=== PATIENT | male | born 1955 | race Caucasian/White ===

== ENCOUNTER 2019-01-31 17:38 | Inpatient (IN) | payer BC ==
[2019-01-31] MEDS ORDERED: hydrOXYzine PAMOATE 25 MG CAPSULE (FP) PO ONE ×2 (18:05→18:44)
[2019-01-31] MEDS ORDERED: KETOROLAC TROMETHAMINE 60 MG/2 ML VIAL IM ONE (18:05)
[2019-01-31] MEDS ORDERED: KETOROLAC TROMETHAMINE 30 MG/1 ML VIAL ONE (18:44)
[2019-01-31] MEDS ORDERED: KETOROLAC TROMETHAMINE 30 MG/1 ML VIAL IVPUSH ONE (18:51)
[2019-01-31 19:00] LABS: ALBUMIN 3.6 g/dl (3.4-5.0); BILIRUBIN,TOTAL 3.6 mg/dl (0.2-1); CALCIUM 8.9 mg/dl (8.5-10); CREATININE 0.9 mg/dl (0.55-1.3); POTASSIUM 3.8 mmol/L (3.5-5.1); TOT PROT 6.4 g/dl (6.4-8.2)
[2019-01-31 19:08] LABS: EPITHELIAL CELLS FEW /hpf
--- NOTE | 2019-01-31 19:19 | PDOC ---
Documentation entered by Lorie Alaniz SCRIBE, acting as scribe for Troy Umanzor MD. Troy Umanzor MD: This documentation has been prepared by the Katty gonzalez Andrys, SCRIBE, under my direction and personally reviewed by me in its entirety. I confirm that the documentation accurately reflects all work, treatment, procedures, and medical decision making performed by me. History of Present Illness - General Chief Complaint: Pain Stated Complaint: BACK PAIN Time Seen by Provider: 01/31/19 17:46 History Source: Patient Exam Limitations: No Limitations - History of Present Illness Initial Comments: 01/31/19 19:18 The patient is a 63 year old male with a significant past medical history of L4 and L5 herniated discs, C3 and C4 fusion, and HEP C who presents to the ED with chronic lower back pain since earlier today. The patient reports sharp lower back pain with radiation to his left buttock and the back of his left leg. Patient states he has chronic lower back pain but his pain progressively worsened earlier today. He states his lower back pain is worsened with movement. He also reports slight numbness and tingling in his left foot associated with present symptoms. Patient took flexeril and tylenol today with no relief of present symptoms. Patient lives in [place] and recently traveled to the [facility] on 01/20. He states he was doing a lot of physical labor several weeks ago. Denies changes in urinary output. Denies nausea, vomiting, or diarrhea. Denies any other symptoms. Social hx: Denies alcohol or tobacco use. Surgical hx: Gallbladder removal, C3 and C4 fusion Allergies: Penicillin, Epinephrine Past History - Past Medical History Allergies/Adverse Reactions: Allergies Allergy/AdvReac Type Severity Reaction Status Date / Time epinephrine Allergy Verified 02/01/19 13:12 Penicillins Allergy Verified 01/31/19 17:39 Home Medications: Ambulatory Orders Aztreonam [Azactam (Restricted To Id) -] 1 gm IVPB Q8H-IV vial 02/02/19 Clindamycin 600Mg Premix Ivpb [Cleocin 600 mg Premix Ivpb -] 600 mg IV Q8H #600 mg 02/02/19 Doxycycline Injection [Vibramycin Injection -] 100 mg IVPB BID vial 02/02/19 Lactobacillus Acidophilus [Bacid -] 1 tab PO DAILY tab 02/02/19 traMADol HCL [Ultram -] 50 mg PO Q12H PRN #30 tablet MDD 2 02/02/19 Review of Systems - Review of Systems Able to Perform ROS?: Yes Comments:: 01/31/19 19:19 CONSTITUTIONAL: Absent: fever, chills, diaphoresis, generalized weakness, malaise, loss of appetite HEENT: Absent: rhinorrhea, nasal congestion, throat pain, throat swelling, difficulty swallowing, mouth swelling, ear pain, eye pain, visual Changes CARDIOVASCULAR: Absent: chest pain, syncope, palpitations, irregular heart rate, lightheadedness , peripheral edema RESPIRATORY: Absent: cough, shortness of breath, dyspnea with exertion, orthopnea, wheezing, stridor, hemoptysis GASTROINTESTINAL: Absent: abdominal pain, abdominal distension, nausea, vomiting, diarrhea, constipation, melena, hematochezia GENITOURINARY: Absent: dysuria, frequency, urgency, hesitancy, hematuria, flank pain, genital pain MUSCULOSKELETAL: + back pain with radiation to buttock and leg. + foot numbness/ tingling Absent:, joint swelling SKIN: Absent: rash, itching, pallor HEMATOLOGIC/IMMUNOLOGIC: Absent: easy bleeding, easy bruising, lymphadenopathy, frequent infections ENDOCRINE: Absent: unexplained weight gain, unexplained weight loss, heat intolerance, cold intolerance NEUROLOGIC: Absent: headache, focal weakness or paresthesias, dizziness, unsteady gait, seizure, mental status changes, bladder or bowel incontinence PSYCHIATRIC: Absent: anxiety, depression, suicidal or homicidal ideation, hallucinations. All Other Systems: Reviewed and Negative *Physical Exam - Vital Signs Last Vital Signs Temp Pulse Resp BP Pulse Ox 102.1 F H 77 20 155/81 98 01/31/19 17:38 01/31/19 17:38 01/31/19 17:38 01/31/19 17:38 01/31/19 17:38 - Physical Exam Comments: 01/31/19 19:19 GENERAL: + Dusky jaundice appearance Awake and alert. No acute distress. HEENT: Normocephalic, atraumatic. PERRLA, EOMI. No conjunctival pallor. Sclera are non- icteric. Moist mucous membranes. Oropharynx is clear. NECK: Supple. Full ROM. No JVD. Carotid pulses 2+ and symmetric, without bruits. No thyromegaly. No lymphadenopathy. CARDIOVASCULAR: Regular rate and rhythm. No murmurs, rubs, or gallops. Distal pulses are 2+ and symmetric. PULMONARY: No evidence of respiratory distress. Lungs clear to auscultation bilaterally. No wheezing, rales or rhonchi. ABDOMINAL:+ Moderately distended Soft. Non-tender. No rebound or guarding. No organomegaly. Normoactive bowel sounds. MUSCULOSKELETAL: + LS spine shows no sign of deformity or inflammation. No point tenderness of musculoskeletal. Straight leg test is negative. Normal range of motion at all joints. No bony deformities or tenderness. No CVA tenderness. EXTREMITIES: No cyanosis. No clubbing. No edema. No calf tenderness. SKIN: Warm and dry. Normal capillary refill. No rashes. No jaundice. NEUROLOGICAL: Alert, awake, appropriate. Cranial nerves 2-12 intact. No deficits to light touch and temperature in face, upper extremities and lower extremities. No motor deficits in the in face, upper extremities and lower extremities. Normoreflexic in the upper and lower extremities. Normal speech. Toes are down- going bilaterally. Gait is normal without ataxia. PSYCHIATRIC: Cooperative. Good eye contact. Appropriate mood and affect. ED Treatment Course - LABORATORY CBC & Chemistry Diagram: 02/02/19 07:50 02/02/19 07:50 Medical Decision Making - Medical Decision Making 02/03/19 09:52 Patient complaining of low back pain, chronic in nature, with acute exacerbation , however noted to have a fever of 102. Signed out to Dr. Butler pending fever workup. Analgesics given. Appears clinically and hemodynamically stable at present. *DC/Admit/Observation/Transfer Diagnosis at time of Disposition: Fever and neutropenia, Thrombocytopenia - Discharge Dispostion Condition at time of disposition: Stable - Referrals - Patient Instructions - Post Discharge Activity
--- NOTE | 2019-01-31 19:32 | PDOC ---
*Physical Exam - Vital Signs Last Vital Signs Temp Pulse Resp BP Pulse Ox 102.1 F H 77 20 155/81 98 01/31/19 17:38 01/31/19 17:38 01/31/19 17:38 01/31/19 17:38 01/31/19 17:38 ED Treatment Course - LABORATORY CBC & Chemistry Diagram: 01/31/19 18:37 01/31/19 18:32 - ADDITIONAL ORDERS Additional order review: Laboratory Results 01/31/19 01/31/19 18:37 18:32 Sodium 140 Potassium 3.8 Chloride 108 H Carbon Dioxide 20 L Anion Gap 12 BUN 14 Creatinine 0.9 Est GFR (CKD-EPI)AfAm 104.24 Est GFR (CKD-EPI)NonAf 89.94 Random Glucose 145 H Calcium 8.9 Total Bilirubin 3.6 H AST 43 H ALT 23 Alkaline Phosphatase 65 Total Protein 6.4 Albumin 3.6 Urine Color Yellow Urine Appearance Clear Urine pH 5.0 Urine Protein Negative Urine Glucose (UA) Negative Urine Ketones Trace Urine Blood Trace-intact Urine Nitrite Negative Urine Bilirubin 1+ H Urine Urobilinogen 0.2 Ur Leukocyte Esterase Negative Urine RBC 2-5 Ur Transition Epith Cell Few - Medications Given in the ED: ED Medications Discontinued Medications Generic Name Dose Route Start Last Admin Trade Name Freq PRN Reason Stop Dose Admin Hydroxyzine Pamoate 25 mg 01/31/19 18:05 01/31/19 18:56 Vistaril - PO 01/31/19 18:06 25 mg ONCE ONE Administration Ketorolac Tromethamine 30 mg 01/31/19 18:51 01/31/19 18:56 Toradol Injection - IVPUSH 01/31/19 18:52 30 mg ONCE ONE Administration Progress Note - Progress Note Progress Note: Care was transferred to t[place] from Dr. Lassiter at 1900 hrs. Patient is a 63-year -old male who has history of lung term chronic low back pain who comes in complaining of increased worse pain as well as a fever of 102. Patient otherwise has history significant for hep B says the mid 80s secondary to a blood transfusion. Patient is being evaluated and worked up for the fever. 20:30 Patient's white count came back at 1.6 with a left shift and his platelets are 30. In further discussion with patient he has never seen a library attendant and had a workup for low platelets or neutropenia. Patient said that he has been told that his platelets run low but to his knowledge never this low. Also his white count has never been this low. Patient will be given broad-spectrum antibiotics for neutropenic fever and admitted to a [facility] bed. Patient's EKG shows normal sinus rhythm at a rate of [address]-T wave changes, poor baseline but otherwise normal Patient's chest x-ray shows no acute pathology *DC/Admit/Observation/Transfer Diagnosis at time of Disposition: Fever and neutropenia, Thrombocytopenia - Discharge Dispostion Decision to Admit order: Yes - Referrals - Patient Instructions - Post Discharge Activity
[2019-01-31 19:42] LABS: BASO % 0.8 % (0-2.0); EOS % 0.5 % (0-4.5); HEMATOCRIT 41.9 % (35.4-49); HEMOGLOBIN 13.7 GM/dL (11.7-16.9); LYMPH % 4.5 % (8-40); MCH 31.3 pg (25.7-33.7); MCHC 32.8 g/dl (32.0-35.9); MEAN CELL VOLUME 95.3 fl (80-96); MEAN PLT VOLUME 11.3 fl (7.5-11.1); MONO % 1.8 % (3.8-10.2); NEUT % 92.4 % (42.8-82.8); RDW 14.8 % (11.9-15.9)
[2019-01-31 19:46] LABS: PLATELET COUNT 30 K/MM3 (134-434); WHITE BLOOD COUNT 1.6 K/mm3 (4.0-10.0)
[2019-01-31] MEDS ORDERED: CYCLOBENZAPRINE HCL 10 MG TABLET (FP) PO ONE (20:08)
[2019-01-31] MEDS ORDERED: oxyCODONE HCL 5 MG TABLET PO ONE (20:09)
[2019-01-31] MEDS ORDERED: CYCLOBENZAPRINE HCL 10 MG TABLET (FP) ONE (20:11)
[2019-01-31] MEDS ORDERED: oxyCODONE HCL 5 MG TABLET ONE (20:11)
[2019-01-31] MEDS ORDERED: CLINDAMYCIN 600MG PREMIX IVPB 600 MG/50 ML BAG IVPB ONE (20:22)
[2019-01-31] MEDS ORDERED: AZTREONAM 2 GM in DEXTROSE 5%-WATER 100 ML IVPB ONE (20:27)
[2019-01-31] MEDS ORDERED: VANCOMYCIN 1 GM in D5W (PRE-DOCKED) 1,000 MG/250 ML IVPB ONE (20:28)
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
[2019-01-31] MEDS ORDERED: ACETAMINOPHEN 325 MG TABLET (FP) PO PRN (20:37)
[2019-01-31] MEDS ORDERED: VANCOMYCIN 1,000 MG VIAL (RESTRICTED TO ID ONLY) ONE (20:46)
[2019-01-31 21:05] LABS: ANISOCYTOSIS 1+; MACROCYTOSIS 1+
[2019-01-31 21:14] LABS: PLATELET ESTIMATE DECREASED
[2019-01-31] MEDS ORDERED: IBUPROFEN 400 MG TABLET (FP) PO PRN (21:32)
[2019-01-31 22:13] VITALS: BMI 26.3
[2019-02-01] MEDS ORDERED: IBUPROFEN 400 MG TABLET (FP) PO PRN (02:17)
--- NOTE | 2019-02-01 09:05 | PN ---
Physical Exam: SUBJECTIVE: Patient seen and examined OBJECTIVE: Vital Signs Period Temp Pulse Resp BP Sys/Storey Pulse Ox Last 24 Hr 98.0 F-102.1 F 64-82 18-20 99-155/54-81 97-99 GENERAL: The patient is awake, alert, and fully oriented, in no acute distress. HEAD: Normal with no signs of trauma. EYES: PERRL, extraocular movements intact, sclera anicteric, conjunctiva clear. No ptosis. ENT: Ears normal, nares patent, oropharynx clear without exudates, moist mucous membranes. NECK: Trachea midline, full range of motion, supple. LUNGS: Breath sounds equal, clear to auscultation bilaterally, no wheezes, no crackles, no accessory muscle use. HEART: Regular rate and rhythm, S1, S2 without murmur, rub or gallop. ABDOMEN: Soft, nontender, nondistended, normoactive bowel sounds, no guarding, no rebound, no hepatosplenomegaly, no masses. EXTREMITIES: 2+ pulses, warm, well-perfused, no edema. NEUROLOGICAL: Cranial nerves II through XII grossly intact. Normal speech, gait not observed. PSYCH: Normal mood, normal affect. SKIN: Warm, dry, normal turgor, no rashes or lesions noted Laboratory Results - last 24 hr 01/31/19 01/31/19 01/31/19 18:32 18:37 18:37 WBC 1.6 L* RBC 4.40 Hgb 13.7 Hct 41.9 MCV 95.3 MCH 31.3 MCHC 32.8 RDW 14.8 Plt Count 30 L* MPV 11.3 H Absolute Neuts (auto) 1.5 Neutrophils % 92.4 H Neutrophils % (Manual) 92.0 H Band Neutrophils % 4.0 Lymphocytes % 4.5 L Lymphocytes % (Manual) 4.0 L Monocytes % 1.8 L Monocytes % (Manual) 2 L Eosinophils % 0.5 Basophils % 0.8 Nucleated RBC % 0 Hypochromia 1+ Platelet Estimate Decreased Platelet Comment No clumping noted Anisocytosis 1+ Macrocytosis 1+ Sodium 140 Potassium 3.8 Chloride 108 H Carbon Dioxide 20 L Anion Gap 12 BUN 14 Creatinine 0.9 Est GFR (CKD-EPI)AfAm 104.24 Est GFR (CKD-EPI)NonAf 89.94 Random Glucose 145 H Lactic Acid Calcium 8.9 Total Bilirubin 3.6 H AST 43 H ALT 23 Alkaline Phosphatase 65 Total Protein 6.4 Albumin 3.6 Urine Color Yellow Urine Appearance Clear Urine pH 5.0 Urine Protein Negative Urine Glucose (UA) Negative Urine Ketones Trace Urine Blood Trace-intact Urine Nitrite Negative Urine Bilirubin 1+ H Urine Urobilinogen 0.2 Ur Leukocyte Esterase Negative Urine RBC 2-5 Ur Transition Epith Cell Few 01/31/19 22:45 WBC RBC Hgb Hct MCV MCH MCHC RDW Plt Count MPV Absolute Neuts (auto) Neutrophils % Neutrophils % (Manual) Band Neutrophils % Lymphocytes % Lymphocytes % (Manual) Monocytes % Monocytes % (Manual) Eosinophils % Basophils % Nucleated RBC % Hypochromia Platelet Estimate Platelet Comment Anisocytosis Macrocytosis Sodium Potassium Chloride Carbon Dioxide Anion Gap BUN Creatinine Est GFR (CKD-EPI)AfAm Est GFR (CKD-EPI)NonAf Random Glucose Lactic Acid 1.6 Calcium Total Bilirubin AST ALT Alkaline Phosphatase Total Protein Albumin Urine Color Urine Appearance Urine pH Urine Protein Urine Glucose (UA) Urine Ketones Urine Blood Urine Nitrite Urine Bilirubin Urine Urobilinogen Ur Leukocyte Esterase Urine RBC Ur Transition Epith Cell Active Medications Generic Name Dose Route Start Last Admin Trade Name Freq PRN Reason Stop Dose Admin Amlodipine Besylate 5 mg 02/01/19 10:00 Norvasc - PO DAILY JENA ASSESSMENT/PLAN: 63 year-old male with a significant PMH of degenerative disc disease (L4-L5 disc herniations) s/p C3-C4 fusion, hepatitis C s/p Harvoni x 5 years, cirrhosis , s/p cholecystectomy. Arrived from [place] on 01/20/19. Presented to the ED for evaluation of sharp lower back pain with left-sided radiculopathy and paresthesias of left foot. Fever Mild neutropenia Leukopenia Thrombocytopenia --Tm 102.1, WBC 1.6k on admission -->2.9k; platelets 30k --blood, urine cultures pending --started on aztreonam, doxycycline, and vanc --hematology consult pending --ID following Hepatitis C Cirrhosis Hyperbilirubinemia --s/p Harvoni treatment x 5 years --serologies pending --US pending Lower back pain --further workup FEN Fluids: PO intake adequate Electrolytes: replete as indicated Nutrition: neutropenic diet DVT prophylaxis: avoid heparin; SCDs, oob, ambulation Dispo: continues
[2019-02-01 09:08] LABS: BILIRUBIN,DIRECT 0.6 mg/dL (0.0-0.2); BILIRUBIN,TOTAL 4.2 mg/dl (0.2-1); CALCIUM 8.5 mg/dl (8.5-10); CREATININE 0.9 mg/dl (0.55-1.3); POTASSIUM 3.9 mmol/L (3.5-5.1); TOT PROT 5.5 g/dl (6.4-8.2)
[2019-02-01 09:36] LABS: BASO % 0.3 % (0-2.0); EOS % 0.5 % (0-4.5); HEMATOCRIT 36.3 % (35.4-49); HEMOGLOBIN 12.1 GM/dL (11.7-16.9); MCH 31.5 pg (25.7-33.7); MCHC 33.3 g/dl (32.0-35.9); MEAN CELL VOLUME 94.5 fl (80-96); MEAN PLT VOLUME 12.2 fl (7.5-11.1); MONO % 8.1 % (3.8-10.2); NEUT % 88.1 % (42.8-82.8); RBC 3.84 M/mm3 (4.00-5.60); RDW 14.7 % (11.9-15.9); WHITE BLOOD COUNT 2.9 K/mm3 (4.0-10.0)
--- NOTE | 2019-02-01 09:47 | PN ---
Progress Note (short form) - Note Progress Note: ID CONSULT DICTATED 63 Y/O MALE WITH PMH CHRONIC LIVER DISEASE ADMITED WITH WORSENING LBP, RIGORS FEBRILE 102.1 WITH LEUKOPENIA/ THROMBOCYYTOPENIA, ELEVATED LFTS ? TICK-RELATED ILLNESS (?BABESIA, LYME/ ANAPLASMA) HX MAJOR PCN ALLERGY AWAIT C/S TICK SEROLOGY HEMOLYSIS W/U EMPIRIC VANCO/ AZTREONAM/ DOXYCYCLINE
[2019-02-01] MEDS ORDERED: amLODIPine BESYLATE 5 MG TABLET (FP) PO SCH (10:00)
[2019-02-01] MEDS ORDERED: DOXYCYCLINE HYCLATE 100 MG VIAL ONE ×2 (10:21→21:29)
[2019-02-01] MEDS ORDERED: DEXTROSE 5%-WATER 100 ML IVPB ONE ×2 (10:21→21:30)
[2019-02-01] MEDS ORDERED: DEXTROSE 5%-WATER - 50 ML IVPB ONE ×2 (10:22→17:50)
[2019-02-01] MEDS ORDERED: AZTREONAM 1 GM VIAL (RESTRICTED TO ID) ONE ×2 (10:23→17:50)
[2019-02-01] MEDS: AZTREONAM 1 GM in DEXTROSE 5%-WATER - 50 ML IVPB SCH ×2 (10:27→17:53)
[2019-02-01] MEDS ORDERED: MAGNESIUM SULF 50% (8.12 MEQ/2 ML-1 GM VIAL) IVPB ONE (10:39)
[2019-02-01] MEDS ORDERED: MAGNESIUM SULFATE IN WATER 2 GM/50 ML IVPB IVPB ONE (11:00)
--- NOTE | 2019-02-01 11:11 | EKG ---
Test Reason : Blood Pressure : / mmHG Vent. Rate : 090 BPM Atrial Rate : 090 BPM P-R Int : 146 ms QRS Dur : 086 ms QT Int : 352 ms P-R-T Axes : 066 -07 016 degrees QTc Int : 430 ms POOR DATA QUALITY, INTERPRETATION MAY BE ADVERSELY AFFECTED NORMAL SINUS RHYTHM NORMAL ECG NO PREVIOUS ECGS AVAILABLE Confirmed by CHELSEA URIAS MD ([id number]) on 02/01/2019 11:11:11 AM Referred By: Confirmed By:CHELSEA URIAS MD
[2019-02-01] MEDS: DOXYCYCLINE INJECTION 100 MG in DEXTROSE 5%-WATER 100 ML IVPB SCH ×2 (11:36→22:35)
[2019-02-01] MEDS: VANCOMYCIN 1 GRAM (PRE-DOCKED) 1,000 MG/250 ML BAG IVPB SCH ×2 (12:41→22:35)
[2019-02-01 12:55] LABS: PLATELET COUNT 30 K/MM3 (134-434); PLATELET ESTIMATE DECREASED
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
--- NOTE | 2019-02-01 17:58 | CONS ---
DATE OF CONSULTATION: DATE OF DICTATION: 02/01/2019 HISTORY: The patient is a 63-year-old male with a history of chronic liver disease and chronic low back pain evaluated for fever. He has a history of chronic back pain. He arrived from [place] approximately 10 days ago. He reports that over the past several days he has had worsening low back pain radiating to the left buttock. He had experienced subjective fever and was noted by his physician son-in-law to have rigors. He was advised to go to the emergency room. In the emergency room, the patient's temperature was 102.1. He was noted to be leukopenic and thrombocytopenic. He has a history of chronic liver disease secondary to transfusion-related hepatitis C infection. He reports having chronic thrombocytopenia; however, his baseline is between 60-120. He was unaware of any history of leukopenia. The patient complains of back pain. Otherwise, has no focal complaint. He denies any chest pain, shortness of breath, cough, or sputum production. No vomiting or diarrhea. No dysuria or hematuria. He denies any rash. No known tick exposure. PAST MEDICAL HISTORY: Positive for chronic low back pain secondary to L4-L5 herniated disks, history of transfusion-related hepatitis C, in 1981 there was a complication of transfusion for complication of hemorrhagic dengue. PAST SURGICAL HISTORY: Status post cholecystectomy. ALLERGIES: PENICILLIN and EPINEPHRINE. The patient reports that as an he developed a rash and labored breathing after receiving PENICILLIN. MEDICATIONS: At this time include vancomycin, aztreonam, amlodipine. SOCIAL HISTORY: He is living in [place]. Has been in [place] for the past 10 days. He is retired. He is an avid outdoorsman in [place]; however, has not spent a significant amount of time outdoors here in [place]. He is a nonsmoker, nondrinker. SYSTEMS REVIEW: Neurologic: No loss of consciousness, seizure activity, focal weakness. Cardiac: Negative chest pain or palpitations. Respiratory: Negative cough or sputum production. Gastrointestinal: Negative vomiting or diarrhea. Genitourinary: Negative for urinary tract infection. LABORATORY DATA: White count 1.6 with 92 neutrophils, 4 bands, 4 lymphocytes, absolute neutrophil count 1.4. Hematocrit 41.9, platelet count 30. Ccreatinine 0.9, total bilirubin 3.6, alkaline phosphatase 65, AST 43, ALT 23. Chest x-ray negative for acute infiltrate. Urinalysis negative. PHYSICAL EXAMINATION: General: He is awake and alert in no acute distress. Vital Signs: Temperature 98, maximum temperature 102.1, blood pressure 116/68, pulse 75 regular, respirations 20 per minute. HEENT: Sclerae icteric. Oropharynx: Poor dentition. No obvious dental abscess. Neck: Supple. Heart: Sounds S1, S2. Lungs: Clear. Abdomen: Soft. No tenderness elicited. No mass, rebound, or rigidity. No palpable liver or spleen. Extremities: Negative for edema. No rash noted. IMPRESSION: A 63-year-old male with a history of chronic liver disease admitted with worsening low back pain and rigors, febrile to 102 with leukopenia, thrombocytopenia, and elevated liver enzymes. 1. Rule out tick-related illness. 2. Rule out neutropenic sepsis. 3. History of major PENICILLIN allergy. 4. Exacerbation of chronic back pain. 5. History of chronic liver disease. PLAN: Await culture results. Obtain tick serology. Babesia PCR. Hemolysis workup. Empiric antibiotic coverage in this PENICILLIN allergic patient with vancomycin and Azactam. Doxycycline for empiric treatment of tick-related pathogens. Hematology evaluation. Thank you for the kind referral. KATHRYN RING M.D. [id number]
[2019-02-01] MEDS: traMADol HCL 50 MG TABLET PO PRN (19:02)
[2019-02-01] MEDS ORDERED: IBUPROFEN 400 MG TABLET (FP) PO ONE ×2 (23:15→23:20)
[2019-02-02] MEDS ORDERED: AZTREONAM 1 GM VIAL (RESTRICTED TO ID) ONE ×3 (00:58→17:13)
[2019-02-02] MEDS ORDERED: DEXTROSE 5%-WATER - 50 ML IVPB ONE ×3 (00:58→17:13)
[2019-02-02] MEDS: AZTREONAM 1 GM in DEXTROSE 5%-WATER - 50 ML IVPB SCH ×3 (01:13→17:31)
[2019-02-02] MEDS: traMADol HCL 50 MG TABLET PO PRN (01:13)
[2019-02-02] MEDS ORDERED: DOXYCYCLINE HYCLATE 100 MG VIAL ONE (09:09)
[2019-02-02] MEDS ORDERED: DEXTROSE 5%-WATER 100 ML IVPB ONE (09:09)
[2019-02-02 09:11] LABS: BILIRUBIN,DIRECT 0.7 mg/dL (0.0-0.2); BILIRUBIN,TOTAL 3.2 mg/dl (0.2-1); CALCIUM 8.2 mg/dl (8.5-10); CREATININE 0.8 mg/dl (0.55-1.3); MAGNESIUM 1.9 mg/dL (1.8-2.4); POTASSIUM 4.2 mmol/L (3.5-5.1); TOT PROT 5.7 g/dl (6.4-8.2)
[2019-02-02] MEDS: DOXYCYCLINE INJECTION 100 MG in DEXTROSE 5%-WATER 100 ML IVPB SCH (09:32)
--- NOTE | 2019-02-02 10:18 | PN ---
Progress Note, Physician History of Present Illness: AWAKE, ALERT SEATED IN BED C/O DENTAL PAIN, L UPPER MOLAR FEBRILE OVERNIGHT BACK PAIN RESOLVED TOLERATING ANTIBIOTICS - Current Medication List Current Medications: Active Medications Aztreonam 1 gm/ Dextrose 50 mls @ 100 mls/hr IVPB Q8H-IV JENA; Protocol Last Admin: 02/02/19 09:32 Dose: 100 mls/hr Doxycycline Hyclate 100 mg/ (Dextrose) 100 mls @ 100 mls/hr IVPB BID JENA Last Admin: 02/02/19 09:32 Dose: 100 mls/hr Clindamycin Phosphate (Cleocin 600 Mg Premix Ivpb -) 600 mg in 50 mls @ 100 mls /hr IVPB Q8H-IV JENA; Protocol Lactobacillus Acidophilus (Bacid -) 1 tab PO DAILY JENA Tramadol HCl (Ultram -) 50 mg PO Q12H PRN PRN Reason: PAIN LEVEL 6-10 Last Admin: 02/01/19 19:02 Dose: 50 mg - Objective Vital Signs: Vital Signs Temperature 97.6 F 02/02/19 06:00 Pulse Rate 53 L 02/02/19 06:00 Respiratory Rate 18 02/02/19 06:00 Blood Pressure 125/53 L 02/02/19 06:00 O2 Sat by Pulse Oximetry (%) 98 02/02/19 06:00 Constitutional: Yes: No Distress Eyes: Yes: Sclera Icterus HENT: Yes: Other (NO GINGIVAL SWELLING / ERYTHEMA) Cardiovascular: Yes: Regular Rate and Rhythm, S1, S2 Respiratory: Yes: CTA Bilaterally Gastrointestinal: Yes: Normal Bowel Sounds, Soft. No: Tenderness Edema: No Labs: CBC, BMP 02/02/19 07:50 Assessment/Plan LEUKOPENIA IMPROVED TODAY'S CBC PENDING ? DENTAL INFECTION R/O TICK-RELATED INFECTION ELEVATED LFTS ? HX GILBERT'S THROMBOCYTOPENIA PCN ALLERGY AWAIT C/S, SEROLOGIES AWAIT TODAY'S CBC CONTINUE DOXYCYCLINE/ AZTREONAM WILL SUBSTITUTE CLINDAMYCIN WITH PROBIOTIC FOR DENTAL COVERAGE
[2019-02-02 10:27] LABS: HEMATOCRIT 38.6 % (35.4-49); HEMOGLOBIN 12.9 GM/dL (11.7-16.9); MCH 31.9 pg (25.7-33.7); MCHC 33.3 g/dl (32.0-35.9); MEAN CELL VOLUME 95.7 fl (80-96); RBC 4.04 M/mm3 (4.00-5.60); RDW 15.2 % (11.9-15.9)
[2019-02-02 10:28] LABS: BASO % 0.7 % (0-2.0); EOS % 2.2 % (0-4.5); LYMPH % 17.7 % (8-40); MONO % 18.2 % (3.8-10.2); NEUT % 61.2 % (42.8-82.8)
[2019-02-02 10:29] LABS: PLATELET COUNT 30 K/MM3 (134-434); WHITE BLOOD COUNT 1.6 K/mm3 (4.0-10.0)
[2019-02-02] MEDS ORDERED: LACTOBACILLUS ACIDOPHILUS 1 TABLET PO SCH (11:00)
[2019-02-02] MEDS: CLINDAMYCIN 600MG PREMIX IVPB 600 MG/50 ML BAG IVPB SCH ×2 (11:26→17:30)
[2019-02-02 12:40] LABS: ANISOCYTOSIS 1+; MACROCYTOSIS 0; PLATELET ESTIMATE DECREASED
--- NOTE | 2019-02-02 13:57 | ECHO ---
Version: 1 Name: LIDIA DUMONT Exam: Adult Echocardiogram Study Date: 02/02/2019, 1:07 PM Age: 63 Years MMode/2D Measurements & Calculations IVSd: 0.81 cm LVIDs: 3.5 cm LVIDd: 5.3 cm LVPWd: 0.68 cm LVOT diam: 2.04 cm Ao root diam: 2.8 cm LA dimension: 4.5 cm Doppler Measurements & Calculations MV E max mumtaz: 66.0 cm/sec MV A max mumtaz: 42.0 cm/sec MV E/A: 1.57 Ao max P.2 mmHg ZEINAB(I,D): 2.40 cm Ao mean P.0 mmHg LV V1 mean: 59.8 cm/sec Ao V2 max: 114.0 cm/sec LV V1 mean P.72 mmHg Left Ventricle The left ventricular size, thickness and function are normal. Ejection Fraction = 65. The transmitra l spectral Doppler flow pattern is suggestive of impaired LV relaxation. Right Ventricle The right ventricle is normal in size and function. Atria Normal left and right atrial size and function. Mitral Valve The mitral valve leaflets appear normal. There is no evidence of stenosis, fluttering, or prolapse. There is mild mitral regurgitation. Tricuspid Valve The tricuspid valve is normal in structure and function. There is mild tricuspid regurgitation. Aortic Valve The aortic valve is normal in structure and function. Pulmonic Valve The pulmonic valve leaflets are thin and pliable; valve motion is normal. Mild pulmonic valvular regurgitation. Great Vessels The aortic root is normal size. Normal aortic arch, descending and ascending aorta. Pericardium/Pleura There is no pericardial effusion. Summary Statements The left ventricular size, thickness and function are normal The transmitral spectral Doppler flow pattern is suggestive of impaired LV relaxation. The right ventricle is normal in size and function. Normal left and right atrial size and function. The mitral valve leaflets appear normal. There is no evidence of stenosis, fluttering, or prolapse. There is mild mitral regurgitation. The tricuspid valve is normal in structure and function. There is mild tricuspid regurgitation. The aortic valve is normal in structure and function. The pulmonic valve leaflets are thin and pliable; valve motion is normal. Mild pulmonic valvular regurgitation. The aortic root is normal size. Normal aortic arch, descending and ascending aorta There is no pericardial effusion. Rashaad Maravilla 02/02/2019, 12:56 PM Ordering Physician: Diane Otero Performed By: [facility]
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
[2019-02-02 19:14] VITALS: BP 140/72; PULSE 65; TEMP 98.5
[2019-02-03 15:14] LABS: E.chaff HME IgG Negative (Neg:<1:64)
[2019-02-04 06:06] LABS: FIBROSIS SCORE. 0.92 (0.00-0.21); HCV ALPHA 2 MACRO CHART 280 mg/dL (110-276); HCV GGT 51 IU/L (0-65); NECRO.INFLAM ACT.SCORE 0.76 (0.00-0.17); NECROINFLAM. ACTIVITY GRADE A3-Severe activity (.)
== END 2019-02-02 19:28 | disposition short-term general hospital (02) | DRG 810 ==
LOC: FER 17:38 → FM/S 21:02
PROVIDERS: ADMIT Internal Medicine; ATTEND Nurse Practitioner Acute Care
DX: D70.9 Neutropenia, unspecified (principal); D69.6 Thrombocytopenia, unspecified; K04.7 Periapical abscess without sinus; D72.819 Decreased white blood cell count, unspecified; K74.60 Unspecified cirrhosis of liver; E80.6 Other disorders of bilirubin metabolism; R74.0 Nonspecific elevation of levels of transaminase and lactic acid dehydrogenase [LDH]; E80.4 Gilbert syndrome; M54.5 Low back pain; I10 Essential (primary) hypertension
CPT/HCPCS: 36415; 70487-TC; 71045-TC-FY; 76700-TC; 80048; 80053; 80076; 81003; 81015; 82172; 82930; 82977; 83010; 83605; 83615; 83735; 83883; 84460; 85025; 85044; 86618; 86666; 86704; 86706; 86850; 86880; 86900; 86901; 87040; 87086; 87186; 87207; 87389; 87522; 93005; 93306-TC; 99285-25